=== PATIENT | female | born 1965 | race Two or more races ===

== ENCOUNTER → 2024-08-10 | Outpatient (CLI) | payer OTHER, SELFPAY ==
--- NOTE | 2024-08-10 13:32 | XR_ITS ---
Examination: Shoulder,left, 3 views Technique: Shoulder AP internal rotation, AP external rotation, Y view shoulder, 3 views Exam date and time :August 10, 2024 1348 hours INDICATIONS: Left shoulder pain beginning 6 months ago. FINDINGS: Moderate osteopenia Mild narrowing glenohumeral joint No shoulder fracture or dislocation No calcific tendinitis IMPRESSION: Mild narrowing glenohumeral joint
--- NOTE | 2024-08-10 13:32 | XR_ITS ---
Examination: Left elbow 3 views Technique: Elbow AP, oblique, lateral 3 views Exam date and time: August 10, 2024 1348 hours INDICATIONS: Left elbow pain beginning 6 months ago. FINDINGS: Adequate bone density. No fracture or dislocation No elbow effusion IMPRESSION: Negative for osseous abnormality.
--- NOTE | 2024-08-10 13:32 | XR_ITS ---
Examination: Humerus 2 views left Technique: Humerus, AP lateral 2 views Date and time of exam: August 10, 2024 1348 hours INDICATIONS: Left elbow and arm pain beginning 6 months ago. FINDINGS: No shoulder fracture or dislocation Shaft of the humerus intact IMPRESSION: No fracture
== END | disposition home or self-care (01) ==
PROVIDERS: PCP Physician Assistant; Referring Provider Physician Assistant; Visit Provider Physician Assistant
DX: M25.812 Other specified joint disorders, left shoulder (principal); M79.622 Pain in left upper arm; M25.522 Pain in left elbow
CPT/HCPCS: 73030; 73060; 73080

== ENCOUNTER → 2024-12-13 | Outpatient (CLI) | payer OTHER, SELFPAY | END | disposition home or self-care (01) | LOC: SLDO 15:23 | PROVIDERS: PCP Registered Nurse; Referring Provider Registered Nurse; Visit Provider Registered Nurse | DX: N39.0 Urinary tract infection, site not specified (principal) | CPT/HCPCS: 87086 ==